=== PATIENT | female | born 1945 | race Caucasian/White ===

== ENCOUNTER 2018-06-19 08:14 | Inpatient (IN) | payer MEDICARE, OTHER ==
[2018-06-16 11:13] LABS: MICROSCOPIC AUTO
[2018-06-16 11:14] LABS: CULTURE INDICATED? YES
[2018-06-16 11:15] LABS: INTERNATIONAL NORMALIZED RATIO 0.94 (0.93-1.1); PROTHROMBIN TIME 9.9 Seconds (9.6-11.5)
[2018-06-16 11:17] LABS: CHLORIDE 98 mmol/L (98-107)
[2018-06-16 11:23] LABS: ALANINE AMINOTRANSFERASE 13 U/L (12-78); ALBUMIN 3.7 g/dL (3.4-5.0); ALKALINE PHOSPHATASE 77 U/L (45-117); ANION GAP 10 mmol/L (5-15); BILIRUBIN,TOTAL 0.6 mg/dL (0.2-1.0); CREATININE 1.13 mg/dL (0.55-1.02); TOTAL PROTEIN 8.4 g/dL (6.4-8.2)
[2018-06-16 11:47] LABS: BASOPHILS # (AUTO) 0.05 x10^3/uL (0-0.1); BASOPHILS % (AUTO) 1 % (0-1); EOSINOPHILS # (AUTO) 0.37 x10^3/uL (0-0.4); EOSINOPHILS % (AUTO) 6 % (1-7); LYMPHOCYTES # (AUTO) 0.65 x10^3/uL (1-3.4); LYMPHOCYTES % (AUTO) 10 % (22-44); MD NO; MEAN CORPUSCULAR HEMOGLOBIN 27.9 pg (27.0-34.8); MEAN CORPUSCULAR HGB CONC 32.9 g/dL (32.4-35.8); MEAN CORPUSCULAR VOLUME 84.8 fL (80-100); MONOCYTES # (AUTO) 0.44 x10^3/uL (0.2-0.8); MONOCYTES % (AUTO) 7 % (2-9); NEUTROPHILS # (AUTO) 5.15 x10^3/uL (1.8-6.8); NEUTROPHILS % (AUTO) 77 % (42-75); PLATELET COUNT 251 x10^3/uL (130-400); RED BLOOD COUNT 4.51 x10^6/uL (3.82-5.3); RED CELL DISTRIBUTION WIDTH 17.5 % (9.6-15.2)
[2018-06-16 12:04] LABS: HEMOGLOBIN A1C 6.1 % (4.2-6.3)
[~2018-06-19] VITALS: Ht 167.6 cm; Wt 100.3 kg
[~2018-06-19 08:14] MED LIST: ACET325T14 PO; ACID1TAB7 PO; AMLO-150 PO; AMOX1TAB12 PO; ASPI-515 PO/NG; ASPI81TA45 PO; ATOR40TA78 PO; BISA10SU65 PR; CEPH-368 PO; CRANBERRY PO; D-MANNOSE PO; ENOX40SY4 SQ; EPINEPHRINE 1 MG/ML, 1ML ONE; ESCI5TAB7 PO; HYDR1TAB13 PO; IRBE1TAB37 PO; KETOROLAC 60 MG/2 ML ONE; LISI-167 NG; LISI5TAB7 PO; MAGN400T26 PO; MECL-76 PO; MELO15TA24 PO; METO25TA35 NG; METO25TA35 PO; OMEP-110 PO; POLY17PO5 PO; ROPIvacaine/PF 0.2%, 20 ML ONE; SODIUM CHLORIDE 0.9% 50 ML ONE; TRANEXAMIC ACID 100 MG/ML, 10ML ONE
[2018-06-19] MEDS ORDERED: FENTANYL PF 250 MCG/5ML ONE (08:26)
[2018-06-19] MEDS ORDERED: MIDAZOLAM 1 MG/ML, 2ML ONE (08:26)
[2018-06-19] MEDS ORDERED: LACTATED RINGERS 1,000 ML IV SCH (08:30)
[2018-06-19] MEDS ORDERED: VANCOMYCIN PER PHARMACY MC PRN (08:30)
[2018-06-19] MEDS ORDERED: LIDOCAINE-MPF 1%, 2ML ONE (09:00)
[2018-06-19] MEDS ORDERED: ACETAMINOPHEN 500 MG TABLET PO ONE (09:00)
[2018-06-19] MEDS ORDERED: GABAPENTIN 300 MG CAPSULE PO ONE (09:00)
[2018-06-19] MEDS ORDERED: VANCOMYCIN 1,600 MG in SODIUM CHLORIDE 0.9% 250 ML IV ONE (09:00)
[2018-06-19] MEDS ORDERED: NEOSTIGMINE 1 MG/ML, 10ML ONE (09:28)
[2018-06-19] MEDS ORDERED: DEXAMETHASONE 4 MG/ML, 1ML ONE (09:28)
[2018-06-19] MEDS ORDERED: PROPOFOL 10 MG/ML, 20ML ONE (09:28)
[2018-06-19] MEDS ORDERED: ROCURONIUM 10MG/ML,5ML ONE (09:28)
[2018-06-19] MEDS ORDERED: GLYCOPYRROLATE 0.2MG/1ML, 5ML ONE (09:28)
[2018-06-19] MEDS ORDERED: ONDANSETRON 2MG/ML, 2ML ONE (09:28)
[2018-06-19] MEDS ORDERED: ALUMINUM/MAG/SIMETHICONE 30 ML UDC PO PRN (09:30)
[2018-06-19] MEDS ORDERED: MAGNESIUM HYDROXIDE 8%, 30ML UDC PO PRN (09:30)
[2018-06-19] MEDS ORDERED: TRANEXAMIC ACID 1,000 MG in SODIUM CHLORIDE 0.9% 100 ML IVPB ONE (09:30)
[2018-06-19] MEDS ORDERED: DIPHENHYDRAMINE 50 MG CAPSULE PO PRN (09:30)
[2018-06-19] MEDS ORDERED: PROMETHAZINE 12.5 MG SUPP PR PRN (09:30)
[2018-06-19] MEDS ORDERED: BISACODYL 10 MG SUPP PR PRN (09:30)
[2018-06-19] MEDS ORDERED: HYDROmorphone 1 MG/ML, 1ML INJ IVPush PRN (09:30)
[2018-06-19] MEDS ORDERED: ACETAMINOPHEN 325 MG TABLET PO PRN ×2 (09:30)
[2018-06-19] MEDS ORDERED: ONDANSETRON 4 MG TABLET PO PRN (09:30)
[2018-06-19] MEDS ORDERED: DEXAMETHASONE 4 MG/ML, 1ML IVPush SCH (09:30)
[2018-06-19] MEDS ORDERED: POLYETHYLENE GLYCOL 17 GM PACKET PO PRN (09:30)
[2018-06-19] MEDS ORDERED: ONDANSETRON 2MG/ML, 2ML IV PRN (09:30)
[2018-06-19] MEDS ORDERED: SENNA/DOCUSATE TABLET PO PRN (09:30)
[2018-06-19] MEDS ORDERED: PSYLLIUM PACKET PO PRN (09:30)
[2018-06-19] MEDS ORDERED: PROMETHAZINE 25 MG/ML, 1ML IM PRN (09:30)
[2018-06-19] MEDS ORDERED: HYDROmorphone 2 MG/ML, 1ML ONE (11:59)
[2018-06-19] MEDS ORDERED: FENTANYL PF 100 MCG/2ML ONE (11:59)
[2018-06-19] MEDS ORDERED: ALBUTEROL SULFATE 2.5 MG/3 ML NPPB PRN (12:00)
[2018-06-19] MEDS ORDERED: PROMETHAZINE 25 MG/ML, 1ML IV PRN (12:00)
[2018-06-19] MEDS ORDERED: hydrALAzine 20 MG/ML, 1ML IV PRN (12:00)
[2018-06-19] MEDS ORDERED: HALOPERIDOL 5 MG/ML IV PRN (12:00)
[2018-06-19] MEDS ORDERED: OXYcodone 5 MG/5 ML ORAL.SOL UDC ONE (12:00)
[2018-06-19] MEDS ORDERED: OXYcodone 5 MG/5 ML ORAL.SOL UDC PO PRN (12:00)
[2018-06-19] MEDS ORDERED: LABETALOL 5MG/ML, 20ML IV PRN (12:00)
[2018-06-19] MEDS: FENTANYL PF 100 MCG/2ML IV PRN ×2 (12:04→12:11)
[2018-06-19] MEDS: HYDROmorphone 2 MG/ML, 1ML IVPush PRN ×4 (12:06→13:04)
[2018-06-19] MEDS ORDERED: LORazepam 2 MG/ML, 1ML ONE (12:46)
[2018-06-19] MEDS ORDERED: LORazepam 2 MG/ML, 1ML IVPush PRN (13:00)
[2018-06-19] MEDS: KETOROLAC 30 MG/1 ML IV SCH ×2 (14:48→23:13)
[2018-06-19] MEDS: POTASSIUM CHLORIDE 20 MEQ in D5%-0.45% NACL 1,000 ML IV SCH ×2 (14:48→23:25)
[2018-06-19] MEDS: OXYcodone IR 5MG TABLET PO PRN ×2 (16:31→20:57)
[2018-06-19] MEDS: TAMSULOSIN 0.4 MG CAP.ER.24H PO SCH (16:31)
[2018-06-19] MEDS: CEFAZOLIN PMX 1GM/50ML 50 ML IVPB SCH (16:31)
[2018-06-19 20:20] VITALS: BP 113/64
[2018-06-19] MEDS: DOCUSATE 100 MG CAPSULE PO SCH (20:58)
[2018-06-19] MEDS ORDERED: AMLODIPINE 10 MG TAB PO SCH (21:00)
[2018-06-19 23:34] VITALS: BP 105/47
[2018-06-20] MEDS: CEFAZOLIN PMX 1GM/50ML 50 ML IVPB SCH (01:05)
[2018-06-20] MEDS: OXYcodone IR 5MG TABLET PO PRN ×3 (01:06→10:43)
[2018-06-20 04:19] VITALS: BP 100/55
[2018-06-20] MEDS ORDERED: OMEPRAZOLE 20 MG CAPSULE.DR PO SCH (06:00)
[2018-06-20] MEDS ORDERED: DEXAMETHASONE 4 MG/ML, 1ML IVPush ONE (06:00)
[2018-06-20 06:27] VITALS: BP 93/51
[2018-06-20] MEDS ORDERED: KETOROLAC 30 MG/1 ML ONE (08:49)
[2018-06-20 08:57] VITALS: BP 116/55
[2018-06-20] MEDS ORDERED: RIVAROXABAN 10 MG TABLET PO SCH (09:00)
[2018-06-20] MEDS ORDERED: HYDROCHLOROTHIAZIDE 12.5 MG CAPSULE PO SCH (09:00)
[2018-06-20] MEDS ORDERED: IRBESARTAN 150 MG TABLET PO SCH (09:00)
[2018-06-20] MEDS: KETOROLAC 30 MG/1 ML IV SCH (09:05)
[2018-06-20] MEDS: TAMSULOSIN 0.4 MG CAP.ER.24H PO SCH (09:06)
[2018-06-20] MEDS: DOCUSATE 100 MG CAPSULE PO SCH (09:06)
[2018-06-20] MEDS: POTASSIUM CHLORIDE 20 MEQ in D5%-0.45% NACL 1,000 ML IV SCH (09:56)
[2018-06-20] MEDS ORDERED: RIVA10TA2 PO (13:37)
== END 2018-06-20 13:45 | disposition home or self-care (01) | DRG 466 ==
LOC: ORIP 08:14 → 4NOR 13:56 → DCLOUNGE 06-20 13:37
PROVIDERS: ADMIT Orthopaedic Surgery; ATTEND Orthopaedic Surgery
PROC: 0SP90JZ Removal of Synthetic Substitute from Right Hip Joint, Open Approach (ICD-10-PCS; 2018-06-19)
PROC: 0SR902Z Replacement of Right Hip Joint with Metal on Polyethylene Synthetic Substitute, Open Approach (ICD-10-PCS; principal; 2018-06-19 10:30)
DX: T84.010A Broken internal right hip prosthesis, initial encounter (principal); R53.2 Functional quadriplegia; D62 Acute posthemorrhagic anemia; E66.9 Obesity, unspecified; Y83.1 Surgical operation with implant of artificial internal device as the cause of abnormal reaction of the patient, or of later complication, without mention of misadventure at the time of the procedure; I10 Essential (primary) hypertension; Z90.710 Acquired absence of both cervix and uterus; Z90.49 Acquired absence of other specified parts of digestive tract; Z91.013 Allergy to seafood; Y92.89 Other specified places as the place of occurrence of the external cause; Z68.35 Body mass index [BMI] 35.0-35.9, adult
CPT/HCPCS: 36415; 80053; 81001; 83036; 85014; 85018; 85025; 85610; 85730; 86850; 86900; 87015; 87070; 87075; 87081; 87086; 87102; 87116; 87205; 87206; 87806; 93005; C1713; G0378; J0171; J0690; J1100; J1170; J1885; J2250; J2405; J2704; J2710; J2795; J3010; J3370; J3480; C1762; C1776; G0475; J2060; J7050; J7120

== ENCOUNTER 2018-07-19 03:33 | Emergency (ER) | payer MEDICARE, OTHER ==
[~2018-07-19] VITALS: Ht 167.6 cm; Wt 94.0 kg
[~2018-07-19 03:33] MED LIST changes: -EPINEPHRINE 1 MG/ML, 1ML ONE; -KETOROLAC 60 MG/2 ML ONE; +RIVA10TA2 PO; -ROPIvacaine/PF 0.2%, 20 ML ONE; -SODIUM CHLORIDE 0.9% 50 ML ONE; -TRANEXAMIC ACID 100 MG/ML, 10ML ONE
[2018-07-19] MEDS ORDERED: KETOROLAC 30 MG/1 ML IVPush ONE (04:00)
[2018-07-19] MEDS ORDERED: DIAZEPAM 5 MG TABLET PO ONE (04:00)
[2018-07-19] MEDS ORDERED: KETOROLAC 30 MG/1 ML ONE (04:01)
[2018-07-19] MEDS ORDERED: DIAZEPAM 5 MG TABLET ONE (04:02)
--- NOTE | 2018-07-19 04:07 | NUR ---
PT HERE FOR LEFT LEG PAIN AND NUMBNESS THAT STARTED YESTERDAY. VSS. PT MEDICATED FOR PAIN AND IS RESTING. LAB AT BEDSIDE. CALL LIGHT IN REACH
[2018-07-19 04:19] LABS: BASOPHILS # (AUTO) 0.03 x10^3/uL (0-0.1); BASOPHILS % (AUTO) 1 % (0-1); EOSINOPHILS % (AUTO) 2 % (1-7); LYMPHOCYTES # (AUTO) 0.36 x10^3/uL (1-3.4); LYMPHOCYTES % (AUTO) 6 % (22-44); MD NO; MEAN CORPUSCULAR HEMOGLOBIN 27.6 pg (27.0-34.8); MEAN CORPUSCULAR HGB CONC 31.2 g/dL (32.4-35.8); MEAN CORPUSCULAR VOLUME 88.6 fL (80-100); MEAN PLATELET VOLUME 6.1 fL (7.4-10.4); MONOCYTES # (AUTO) 0.31 x10^3/uL (0.2-0.8); MONOCYTES % (AUTO) 5 % (2-9); NEUTROPHILS # (AUTO) 5.79 x10^3/uL (1.8-6.8); NEUTROPHILS % (AUTO) 88 % (42-75); PLATELET COUNT 389 x10^3/uL (130-400); RED BLOOD COUNT 3.34 x10^6/uL (3.82-5.3); RED CELL DISTRIBUTION WIDTH 17.3 % (9.6-15.2)
[2018-07-19 04:27] LABS: ALBUMIN 3.2 g/dL (3.4-5.0); ANION GAP 8 mmol/L (5-15); CHLORIDE 107 mmol/L (98-107); CREATININE 1.45 mg/dL (0.55-1.02)
[2018-07-19 04:50] VITALS: BP 121/56
--- NOTE | 2018-07-19 04:50 | NUR ---
Patient amble to ambulate. pain has improved. Patient given discharge instructions and they have confirmed that they understand the instructions. Patient ambulatory with steady gait.
== END 2018-07-19 05:07 | disposition home or self-care (01) ==
LOC: ED 05:00
DX: M54.32 Sciatica, left side (principal); I10 Essential (primary) hypertension; Z90.89 Acquired absence of other organs; Z90.49 Acquired absence of other specified parts of digestive tract; Z90.710 Acquired absence of both cervix and uterus; Z86.718 Personal history of other venous thrombosis and embolism; Z96.649 Presence of unspecified artificial hip joint
CPT/HCPCS: 36415; 80048; 82040; 85025; 96374; 99283; J1885